=== PATIENT | female | born 1950 | race Caucasian/White ===

== ENCOUNTER 2023-05-21 10:12 | Day surgery (SDC) | payer MEDICARE, BC ==
[2023-05-20 13:50] VITALS: BMI 44.8
[2023-05-21] MEDS ORDERED: fentaNYL 50 mcg/mL 1 mL Vial ONE (11:50)
[2023-05-21 11:51] LABS: Anion Gap 17 mmol/L (10-20); BUN (Urea Nitrogen) 26 mg/dL (9.8-20.1); Calc. Creatinine Clearance 86 mL/min (70-130); Calcium 10.3 mg/dL (7.8-10.44); Carbon Dioxide 22 mmol/L (23-31); Chloride 103 mmol/L (98-107); Estimated GFR 57; Glucose 94 mg/dL (83-110); Potassium 4.5 mmol/L (3.5-5.1); Sodium 137 mmol/L (136-145)
[2023-05-21] MEDS ORDERED: Lidocaine 1% PF 5 ML VIAL ONE (12:35)
[2023-05-21] MEDS ORDERED: PROPOFOL 200 MG/20 ML VIAL ONE (12:35)
== END 2023-05-21 14:50 | disposition home or self-care (01) ==
LOC: MRI 10:12
PROVIDERS: ATTEND Orthopaedic Surgery
DX: M54.16 Radiculopathy, lumbar region (principal); I10 Essential (primary) hypertension; E11.9 Type 2 diabetes mellitus without complications; E78.00 Pure hypercholesterolemia, unspecified; Z98.84 Bariatric surgery status; Z79.82 Long term (current) use of aspirin; Z79.84 Long term (current) use of oral hypoglycemic drugs; Z79.899 Other long term (current) drug therapy
CPT/HCPCS: 72148; 80048; 82962; 93005; J3010; 36415; 36416; 93010; J2704